=== PATIENT | male | born 1980 | race Caucasian/White ===

== ENCOUNTER → 2019-10-08 14:33 | Outpatient (CLI) | payer BC, SELFPAY ==
--- NOTE | ~2019-10-08 | US_ITS ---
EXAMINATION: US abdomen complete EXAM DATE: 10/08/2019 15:01 INDICATION: Abnormal liver function tests. TECHNIQUE: Multiple grayscale and Doppler images of the complete abdomen were obtained (by a technolo gist who performed the scan) and subsequently reviewed. Comparison is made to prior examination from 02/04/2018. FINDINGS: The abdominal aorta is normal in caliber. Visualized portion IVC is patent. The pancreatic head a nd body are normal in appearance. The pancreatic tail is not visualized. There is echogenic liver parenchyma, hepatic steatosis. There is a right liver lobe cyst measuring 1 .3 cm. There is no evidence of intrahepatic biliary duct dilation. Portal venous flow was seen in t he hepatopedal, normal direction and has normal Doppler waveform. Common bile duct measures 4 mm, which is normal. The gallbladder wall is normal in thickness, with ex pected amount of distention. No sonographic evidence of pericholecystic fluid. There is no cholelit hiases. Technologist performing exam reports patient did not demonstrate sonographic Villalpando's sign. Please note that this sign is less reliable in patients who have received pain medication. Right kidney: There is normal contour and echogenicity. It measures 12.4 x 6.1 x 6.0 centimeters. There are no focal renal lesions identified. There is no hydronephrosis. Left kidney: There is normal contour and echogenicity. It measures 12.0 x 6.3 x 5.7 centimeters. T here are no focal renal lesions identified. There is no hydronephrosis. The spleen measures 13.7 centimeters and is morphologically normal. IMPRESSION: 1. Hepatic steatosis. Reviewed, dictated and finalized at location B. [facility] IMPRESSION: 1. Hepatic steatosis.
== END ==
DX: K76.0 Fatty (change of) liver, not elsewhere classified (principal)
CPT/HCPCS: 76700

== ENCOUNTER 2020-12-22 10:04 | Outpatient (CLI) | payer BC, SELFPAY ==
--- NOTE | ~2020-12-22 | MR_ITS ---
EXAMINATION: MR femur LT wo con DATE: 12/22/2020 11:02 INDICATION: Left thigh mass TECHNIQUE: Magnetic resonance imaging (MRI) of the left thigh was performed without intravenous contr ast. A marker was placed over the mass. Sequences included axial, sagittal and coronal T1-weighted F SE and fluid sensitive FSE STIR and axial T1-weighted FS FSE. COMPARISON: None. FINDINGS: There is normal appearance to the subcutaneous fat and underlying musculature about the left thigh an d in particular deep to the marker indicating the region of concern which overlies the anterior hubert n of the distal vastus lateralis muscle. No abnormal masses or fluid collections identified. Neurovas cular structures in the visualized left thigh are unremarkable. No pathologically enlarged left ingui nal lymphadenopathy. Mild degenerative subchondral cystic change at the posterior aspect of the left femoral head. Marrow signal is otherwise normal throughout. IMPRESSION: 1. Unremarkable study. No abnormal masses or fluid collections identified at the or concern at the an terolateral distal left thigh. Reviewed, dictated and finalized at location A. IMPRESSION: 1. Unremarkable study. No abnormal masses or fluid collections identified at th e or concern at the anterolateral distal left thigh.
== END 2020-12-22 10:05 | disposition home or self-care (01) ==
PROVIDERS: PCP Registered Nurse; Visit Provider Registered Nurse
DX: R22.42 Localized swelling, mass and lump, left lower limb (principal)
CPT/HCPCS: 73721

== ENCOUNTER 2021-03-04 16:41 | Outpatient (CLI) | payer BC, SELFPAY ==
--- NOTE | ~2021-03-04 | XR_ITS ---
XR lumbar spine 2-3V DATE: 03/04/2021 17:01 INDICATION: Left leg paresthesias 2013 TECHNIQUE: AP, lateral, coned lateral lumbosacral views COMPARISON: None FINDINGS: Diffuse idiopathic skeletal hyperostosis of the thoracic spine. Normal alignment of the lumbar vertebrae. The lumbar spine fracture or bone destruction. The included lower thoracic and lumbar pedicles are intact. Moderate degenerative disc disease and spurring at L1-2. There is mild degenerative spurring of the remaining lumbar vertebrae but relative preservation of th e remaining disc spaces. The sacroiliac joints appear normal. IMPRESSION: Diffuse idiopathic skeletal hyperostosis of the thoracic spine Moderate degenerative disc disease at L1-2, mild degenerative change at the remainder of the lumbar s pine Reviewed, dictated and finalized at location A. IMPRESSION: Diffuse idiopathic skeletal hyperostosis of the thoracic spine Moderate degenerative disc disease at L1-2, mild degenerative change at the rem ainder of the lumbar spine
== END 2021-03-04 16:42 | disposition home or self-care (01) ==
LOC: ANHIMG 16:44
PROVIDERS: PCP Registered Nurse; Visit Provider Student in an Organized Health Care Education/Training Program
DX: R20.2 Paresthesia of skin (principal); M48.14 Ankylosing hyperostosis [Forestier], thoracic region; M51.36 Other intervertebral disc degeneration, lumbar region
CPT/HCPCS: 72100

== ENCOUNTER 2021-04-07 10:56 | Outpatient (CLI) | payer BC, SELFPAY ==
--- NOTE | ~2021-04-07 | MR_ITS ---
EXAMINATION: MR lumbar spine wo con DATE: 04/07/2021 11:45 INDICATION: Lumbar radiculopathy. TECHNIQUE: Magnetic resonance imaging (MRI) of the lumbar spine was performed without intravenous con trast. Sequences included sagittal T2-weighted FSE, sagittal T2-weighted FS FSE, sagittal T1-weighted FSE, and axial T2-weighted FSE. COMPARISON: Lumbar spine radiographs 03/04/2021 FINDINGS: Bone alignment is normal. There is mild chronic anterior wedging of T11-L1 vertebral bodies associated with Schmorl's nodes. Intervertebral disc heights are normal. The distal spinal cord sign al intensity is normal. The conus medullaris is at L1. The following disc levels are specifically dis cussed: L1-L2: The disc is mildly bulging. There is no facet joint osteoarthritis. There is mild bilateral ne ural foraminal stenosis. There is no central canal stenosis. L2-L3: The disc does not extend beyond the endplate margin. There is no facet joint osteoarthritis. T here is no neural foraminal stenosis. There is no central canal stenosis. L3-L4: The disc does not extend beyond the endplate margin. There is mild bilateral facet joint osteo arthritis. There is mild right neural foraminal stenosis. There is no central canal stenosis. L4-L5: The disc does not extend beyond the endplate margin. There is moderate bilateral facet joint o steoarthritis. There is no neural foraminal stenosis. There is no central canal stenosis. L5-S1: The disc is bulging and has an annular fissure. There is moderate bilateral facet joint osteoa rthritis. There is mild bilateral neural foraminal stenosis. There is mild central canal stenosis. IMPRESSION: 1. Mild lumbar spondylosis. Reviewed, dictated and finalized at location A. IMPRESSION: 1. Mild lumbar spondylosis.
== END 2021-04-07 10:57 | disposition home or self-care (01) ==
PROVIDERS: PCP Student in an Organized Health Care Education/Training Program; Visit Provider Student in an Organized Health Care Education/Training Program
DX: M54.16 Radiculopathy, lumbar region (principal); M47.816 Spondylosis without myelopathy or radiculopathy, lumbar region
CPT/HCPCS: 72148

== ENCOUNTER 2021-04-14 11:13 | Outpatient (CLI) | payer BC, SELFPAY ==
--- NOTE | ~2021-04-14 | US_ITS ---
EXAMINATION: US renal BI EXAM DATE: 04/14/2021 11:50 INDICATION: Proteinuria. TECHNIQUE: Multiple grayscale and Doppler images of the kidneys were obtained (by a technologist who performed the scan) and subsequently reviewed. Comparison is made to prior examination from 10/08/2019 . FINDINGS: Incidental hepatic steatosis. Right kidney: There is normal contour and echogenicity. It measures 13.1 x 5.9 x 5.9 centimeters. T here are no focal renal lesions identified. There is no hydronephrosis. Left kidney: There is normal contour and echogenicity. It measures 12.9 x 6.3 x 6.3 centimeters. Th ere are no focal renal lesions identified. There is no hydronephrosis. Bladder unremarkable. Bilateral ureteral jets confirmed. IMPRESSION: Sonographically unremarkable kidneys. Reviewed, dictated and finalized at location B.
== END 2021-04-14 11:14 | disposition home or self-care (01) ==
PROVIDERS: PCP Student in an Organized Health Care Education/Training Program; Visit Provider Internal Medicine Nephrology
DX: R80.8 Other proteinuria (principal)
CPT/HCPCS: 76775

== ENCOUNTER 2021-09-18 13:09 | Outpatient (CLI) | payer BC, SELFPAY ==
--- NOTE | ~2021-09-18 | XR_ITS ---
EXAMINATION: XR heel LT min 2V DATE: 09/18/2021 13:40 INDICATION: Left heel pain. TECHNIQUE: 2 views of left calcaneus were obtained. COMPARISON: None. FINDINGS: Bone alignment is normal. No fracture. There is mild midfoot osteoarthritis. IMPRESSION: 1. Mild midfoot osteoarthritis. Reviewed, dictated and finalized at location E. OR
--- NOTE | ~2021-09-18 | XR_ITS ---
EXAMINATION: XR heel RT min 2V DATE: 09/18/2021 13:40 INDICATION: Right heel pain. TECHNIQUE: 2 views of right calcaneus were obtained. COMPARISON: None. FINDINGS: Pes planus is noted. No fracture. Joint spaces are normal. IMPRESSION: 1. Pes planus. Reviewed, dictated and finalized at location E. [employer] IMPRESSION: 1. Pes planus.
== END 2021-09-18 13:10 | disposition home or self-care (01) ==
PROVIDERS: PCP Student in an Organized Health Care Education/Training Program
DX: M79.671 Pain in right foot (principal); M21.41 Flat foot [pes planus] (acquired), right foot; M19.072 Primary osteoarthritis, left ankle and foot
CPT/HCPCS: 73650

== ENCOUNTER 2022-06-01 15:32 | Emergency (ER) | payer BC, SELFPAY ==
--- NOTE | ~2022-06-01 | XR_ITS ---
EXAMINATION: XR chest 2V DATE: 06/01/2022 16:10 INDICATION: Cough. TECHNIQUE: Frontal and lateral views of the chest were obtained. COMPARISON: Chest CT 02/04/2018 FINDINGS: The chest demonstrates clear lungs without pneumonia, pleural effusion, or pneumothorax. Th e heart size is normal. There is mild chronic anterior wedging of multiple vertebral bodies. IMPRESSION: 1. No acute cardiopulmonary disease. Reviewed, dictated and finalized at location A.
[2022-06-01 15:40] VITALS: BP 154/90; PULSE 72; RESP 16; TEMP 36.6; O2SAT 99
--- NOTE | 2022-06-01 16:02 | ED.URI ---
HPI - URI/Sore Throat General Chief Complaint: Upper Respiratory Infection Stated Complaint: cough Time Seen by Provider: 06/01/22 15:55 Source: patient, RN notes reviewed and old records reviewed Mode of arrival: ambulatory Limitations: no limitations History of Present Illness HPI Narrative: 41-year-old male presents to express care with complaints of itchy scratchy throat, some runny nose and intermittent cough. Patient reports that he as been ill 3 times since March with same symptoms.. Patient reports that he has been on antihistamines intermittently but not continuously.Patient reports past history of pneumonia and wants him to get chest x-ray today. 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 MD elicited complaint: cough and sore throat Pertinent past history: pneumonia and other (sleep apnea, PE age 30) Onset (ago): week(s) (1 1 1/2 weeks) Treatments prior to arrival: other [facility] Related Data Allergies Allergy/AdvReac Type Severity Reaction Status Date / Time No Known Allergies Allergy Verified 06/01/22 15:39 Review of Systems Review of Systems: CONSTITUTIONAL: Denies malaise, chills, sweats, or fever. EYES: Denies visual changes, redness, or discharge. ENT: Reports rhinorrhea, congestion, no sinus pain, otalgia, report scratchy sore throat. CARDIOVASCULAR: Denies chest pain, palpitations, or edema. RESPIRATORY: Reports cough.? Denies dyspnea. GASTROINTESTINAL: Denies abdominal pain, nausea, vomiting, diarrhea SKIN: Denies rash or itching. MUSCULOSKELETAL: Denies myalgia. NEUROLOGIC: Denies headache. All systems reviewed & are unremarkable except as noted in HPI and below PMFSH Past Medical History Medical History Pneumonia Pulmonary embolism age 30 Sleep apnea Surgical History Surgical History (Updated 06/05/22 @ 09:04 by Loni Wiseman NP) H/O nasal septoplasty History of tonsillectomy Social History Social History Smoking status: Never smoker Alcohol intake: current Alcohol use details: socially Comments At time of signature, agree with nursing past medical, surgical, social and family history. There is no relevant family history pertinent to the presenting complaint Exam Narrative: GENERAL: Well-appearing, well-nourished,obese and in no acute distress. HEAD: Normocephalic EYES: PERRLA, conjunctivae clear ENT: Nares clear, turbinates edematous and erythematous, clear discharge. Mucous membranes moist. TM pearly pope with dull light reflex bilaterally; no tragal tenderness. Oropharynx erythematous without lesions. Tonsils not present and without exudate, to throat,no drooling, no hoarseness, no trismus, uvula midline. NECK: Supple. No lymphadenopathy CHEST: Decreased to auscultation, breath sounds equal. No wheezing, rhonchi, rales, or stridor. No respiratory distress, speaks in full sentences.SAO2 99% on room air HEART: Regular rate and rhythm. No murmur heard. SKIN: Warm, dry, no rash. NEURO: Alert and oriented x3. PSYCH: Normal mood and affect Course Course Emergency Course: Patient is aware of diagnosis, understands and agrees to treatment plan.? Anticipatory guidance given.? Patient agrees to follow-up as directed and is aware of reasons to seek care at the emergency department. Portions of this record may have been created with voice recognition software Level of Care: Express Care Visit Vital Signs Vital signs: Vital Signs Temperature 36.6 C 06/01/22 15:40 Pulse Rate 72 06/01/22 15:40 Respiratory Rate 16 06/01/22 15:40 Blood Pressure 154/90 H 06/01/22 15:40 Pulse Oximetry 99 06/01/22 15:40 Oxygen Delivery Room Air 06/01/22 15:40 Temperature 36.6 C 06/01/22 15:40 Pulse Rate 72 06/01/22 15:40 Respiratory Rate 16 06/01/22 15:40 Blood Pressure 154/90
== END 2022-06-01 16:45 | disposition home or self-care (01) ==
PROVIDERS: Emergency Provider Registered Nurse; PCP Student in an Organized Health Care Education/Training Program
DX: J06.9 Acute upper respiratory infection, unspecified (principal); G47.30 Sleep apnea, unspecified; Z86.711 Personal history of pulmonary embolism
CPT/HCPCS: 71046; 99213; G0463

== ENCOUNTER 2023-02-10 14:29 | Outpatient (CLI) | payer OTHER, BC, SELFPAY ==
--- NOTE | ~2023-02-10 | XR_ITS ---
EXAMINATION: XR chest 2V Exam Date/Time: 02/10/2023 14:46 CDT HISTORY: COUGH Comparison: 06/01/2022. RESULT: Lines, tubes, and devices: None. Lungs and pleura: Clear. Cardiomediastinal silhouette: Stable. Other: No acute osseous or upper abdominal finding. IMPRESSION: No acute cardiopulmonary process. Reviewed, dictated and finalized at location K.
== END 2023-02-10 14:30 | disposition home or self-care (01) ==
PROVIDERS: PCP Internal Medicine Geriatric Medicine; Visit Provider Internal Medicine Geriatric Medicine
DX: R05.3 Chronic cough (principal)
CPT/HCPCS: 71046